=== PATIENT | female | born 1970 | race Caucasian/White ===

== ENCOUNTER 2020-11-22 15:47 | Emergency (ER) | payer MEDICARE ==
[~2020-11-22] VITALS: Ht 175.3 cm; Wt 163.6 kg
[~2020-11-22 15:47] MED LIST: BENTYL 20 MG TA20 MG PO; BUMEX2 MG PO; DILAUDID4 MG PO; ELAVIL25 MG PO; FOLIC ACID1 MG PO; IBUPROFEN600 MG PO; KETOCONAZOLE120 ML TOPICAL; KLONOPIN0.5 MG PO; LEVOFLOXACIN500 MG PO; LYRICA200 MG PO; MUPIROCIN15 GM TOPICAL; PERCOCET 10-321 EAC1 PO; PLAVIX75 MG PO; REXULTI1 MG PO; SEROQUEL100 MG PO; ULTRAM50 MG PO; VIBRAMYCIN 100100 MG PO; XANAX0.5 MG PO; ZOLOFT100 MG PO; [UNRECOGNIZED DRUG - OTHER] PO
[2020-11-22 16:06] VITALS: Ht 175.3 cm; Wt 163.6 kg
[2020-11-22] MEDS ORDERED: CALCIUM 500 +1 EAC3 PO (16:27)
[2020-11-22] MEDS ORDERED: ROCEPHIN 1 GM/D51 G1 IM (16:28)
[2020-11-22] MEDS ORDERED: VALIUM10 MG PO (16:29)
[2020-11-22] MEDS ORDERED: PHAZYME 125 MG125 MG PO (16:32)
[2020-11-22] MEDS ORDERED: CARAFATE1 G PO (16:33)
[2020-11-22] MEDS ORDERED: VITAMIN D325 MC1 PO (16:33)
[2020-11-22] MEDS ORDERED: ONDANSETRON HCL8 MG PO (16:34)
[2020-11-22] MEDS ORDERED: AZO STANDARD95 MG PO (16:35)
[2020-11-22 16:47] LABS: BASOPHILS 0.4 % (0-2); HEMATOCRIT 36.2 % (36.0-48.0); HEMOGLOBIN 11.7 g/dL (12-16); IMMATURE GRANULOCYTES 0.8 % (0-5); LYMPHOCYTE ABS# 1.53 10x3/uL (1.18-3.74); LYMPHOCYTES 18.5 % (15-50); MCH 25.4 pg (26.0-34.0); MCHC 32.3 g/dL (31.0-37.0); MCV 78.5 fL (80.0-100.0); MEAN PLATELET VOLUME 10.4 fL (7.4-10.4); MONOCYTES 5.2 % (2-11); NEUTROPHIL ABS# 5.79 10x3/uL (1.56-6.13); NEUTROPHILS 70.1 % (40-80); RBC 4.61 10x6/uL (4.00-5.40); WBC 8.3 10x3/uL (4.8-10.8)
[2020-11-22 16:49] LABS: PLATELET COUNT 161 10x3/uL (130-400)
[2020-11-22 16:52] LABS: ANION GAP 11.8 mmol/L (8-16); CALCIUM 8.7 mg/dL (8.5-10.1); CARBON DIOXIDE 29.6 mmol/L (21.0-32.0); CREATININE - SERUM 1.2 mg/dL (0.6-1.3); POTASSIUM - SERUM 4.4 mmol/L (3.5-5.1)
[2020-11-22 16:58] LABS: ALBUMIN 3.1 g/dL (3.4-5.0); BILIRUBIN - TOTAL 0.19 mg/dL (0.2-1.3); PROTEIN - SERUM 8.3 g/dL (6.4-8.2)
[2020-11-22 17:06] LABS: BILIRUBIN NEGATIVE (NEGATIVE); KETONE NEGATIVE (NEGATIVE); NITRITE POSITIVE (NEGATIVE); UROBILINOGEN NORMAL mg/dL (< 2)
[2020-11-22 17:09] LABS: BACTERIA MANY HPF (NONE SEEN); SQUAMOUS EPITHELIAL 0-5 HPF (0-4); WHITE CELLS - URINE >50 HPF (0-4)
[2020-11-22 17:11] LABS: UDS - BARB NEGATIVE QUAL (NEGATIVE); UDS - BENZO POSITIVE QUAL (NEGATIVE); UDS - COCAINE NEGATIVE QUAL (NEGATIVE); UDS - OPIATE NEGATIVE QUAL (NEGATIVE); UDS - PCP NEGATIVE QUAL (NEGATIVE); UDS - THC NEGATIVE QUAL (NEGATIVE)
[2020-11-22 17:12] LABS: UDS - AMPHET NEGATIVE QUAL (NEGATIVE)
[2020-11-22 22:40] VITALS: BP 145/76
== END 2020-11-22 22:40 ==
LOC: D.ER 15:47
PROVIDERS: Family Medicine
DX: N39.0 Urinary tract infection, site not specified (principal); G82.20 Paraplegia, unspecified; I11.0 Hypertensive heart disease with heart failure; I50.9 Heart failure, unspecified; R53.83 Other fatigue